=== PATIENT | male | born 1995 | race Caucasian/White ===

== ENCOUNTER 2018-10-10 19:06 | Emergency (ER) | payer OTHER ==
[~2018-10-10] VITALS: Ht 167.6 cm; Wt 77.3 kg
[2018-10-10 19:10] VITALS: TEMP 98.3
[2018-10-10 20:57] VITALS: BP 134/93
[2018-10-10] MEDS ORDERED: NORCO 325 MG-51 TAB PO (21:04)
[2018-10-10 21:47] VITALS: PULSE 72
== END 2018-10-10 21:47 | disposition home or self-care (01) ==
LOC: COL.ER 19:06
DX: S53.124A Posterior dislocation of right ulnohumeral joint, initial encounter (principal); S52.021A Displaced fracture of olecranon process without intraarticular extension of right ulna, initial encounter for closed fracture; W19.XXXA Unspecified fall, initial encounter; Y93.66 Activity, soccer
CPT/HCPCS: J2704; J3010; J7030; Q4050